=== PATIENT | female | born 1995 | race Caucasian/White ===

== ENCOUNTER 2020-10-31 13:29 | Emergency (ER) | payer OTHER ==
[~2020-10-31 13:29] MED LIST: EXPECTORANT200 MG PO; FEOSOL325 MG PO; FLONASE 0.05% N16 GM; SUDAFED 60 MG T60 MG PO; ZOFRAN4 MG PO
[2020-10-31 14:36] LABS: HEMOGLOBIN 12.9 gm/dl (12.3-15.3); RED BLOOD COUNT 4.53 M/UL (4.00-5.10); WHITE BLOOD COUNT 9.7 K/UL (4.5-11.0)
[2020-10-31 14:56] LABS: BUN/CREATININE RATIO 10 (0-10)
[2020-10-31] MEDS ORDERED: ENDOCET 5-3251 EACH PO (15:18)
[2020-10-31] MEDS ORDERED: ZOFRAN ODT 4 MG4 MG SL (15:18)
[2020-10-31] MEDS ORDERED: AUGMENTIN 875-1 EACH PO (15:18)
[2020-10-31] MEDS ORDERED: IBUPROFEN800 MG PO (15:18)
== END 2020-10-31 15:33 | disposition home or self-care (01) ==
LOC: ER1 13:29
PROVIDERS: Emergency Medicine
DX: K80.70 Calculus of gallbladder and bile duct without cholecystitis without obstruction (principal); Z88.1 Allergy status to other antibiotic agents
CPT/HCPCS: 80053; 81001; 83690; 84703; 85025; 99284

== ENCOUNTER 2020-11-02 13:24 | Observation (INO) | payer OTHER ==
[~2020-11-02] VITALS: Ht 170.2 cm; Wt 77.1 kg
[~2020-11-02 13:24] MED LIST changes: +AUGMENTIN 875-1 EACH PO; +ENDOCET 5-3251 EACH PO; +IBUPROFEN800 MG PO; +ZOFRAN ODT 4 MG4 MG SL
[2020-11-02 15:39] LABS: HEMOGLOBIN 12.2 gm/dl (12.3-15.3); RED BLOOD COUNT 4.24 M/UL (4.00-5.10); WHITE BLOOD COUNT 7.8 K/UL (4.5-11.0)
[2020-11-02] MEDS ORDERED: PROZAC40 MG PO (16:42)
[2020-11-03] MEDS ORDERED: COLACE100 MG PO (09:06)
[2020-11-03] MEDS ORDERED: HYDROCODON-ACE1 EAC2 PO (09:06)
== END 2020-11-03 18:26 | disposition home or self-care (01) ==
LOC: MED SURG 4 15:04
PROVIDERS: ADMIT Surgery
PROC: 0FT44ZZ Resection of Gallbladder, Percutaneous Endoscopic Approach (ICD-10-PCS; principal; 2020-11-03 09:15)
DX: K80.10 Calculus of gallbladder with chronic cholecystitis without obstruction (principal); F17.290 Nicotine dependence, other tobacco product, uncomplicated; E66.9 Obesity, unspecified; Z88.1 Allergy status to other antibiotic agents; Z79.899 Other long term (current) drug therapy; Z20.822 Contact with and (suspected) exposure to COVID-19
CPT/HCPCS: 36415; 84702; 85027; 96374; 96376; G0378; G0379; J0690; J1100; J1170; J1885; J2001; J2250; J2270; J2405; J2704; J2710; J3010; J3480; J7030; J7120; U0002